=== PATIENT | male | born 1975 | race Caucasian/White ===

== ENCOUNTER 2018-04-23 18:11 | Emergency (ER) | payer OTHER ==
[~2018-04-23] VITALS: Ht 180.3 cm; Wt 84.4 kg
[~2018-04-23 18:11] MED LIST: AUGMENTIN 875875 MG PO; BACTRIM DS TAB1 EACH PO; KEFLEX500 MG PO; MEDROLDOSEPACK PO; NOHOMEMEDICATIONS; NORCO 5-325 TA1 EACH PO; PENICILLIN VK250 MG PO; PREDNISONE 20 M20 MG PO; PREDNISONE50 MG PO; PROMETHAZINE-C120 ML PO; SILVADENE20 GM TP; ULTRAVATE50 GM TP; ZOFRAN ODT4 MG PO
[2018-04-23] MEDS ORDERED: UNICOMPLEX M TA1 TA1 PO (18:20)
[2018-04-23] MEDS ORDERED: FISH OIL 1,001000 M2 PO (18:20)
[2018-04-23] MEDS ORDERED: VITAMIN B122500 MCG PO (18:21)
[2018-04-23 18:44] LABS: ABSOLUTE BASOPHILS 0.1 thou/uL (0.0-0.2); ABSOLUTE EOSINOPHILS 0.2 thou/uL (0.0-0.7); ABSOLUTE LYMPHOCYTES 2.4 thou/uL (0.8-5.3); ABSOLUTE MONOCYTES 0.4 thou/uL (0.0-1.2); ABSOLUTE NEUTROPHILS 3.3 thou/uL (1.6-8.1); BASOPHILS 1.2 %; EOSINOPHILS 3.2 %; HEMOGLOBIN 14.3 gm/dL (14.0-18.0); LYMPHOCYTES 37.6 %; MCH 30.8 pg (26.0-34.0); MCHC 34.9 g/dL (28.0-37.0); MCV 88.4 fL (80.0-100.0); MONOCYTES 6.2 %; MPV 8.4 fl. (7.2-11.1); NUCLEATED RBCS 0 /100WBC; PLATELET COUNT* 240 thou/uL (150-400); POLYS 51.8 %; RBC 4.64 mil/uL (4.50-6.00); RDW-CV 12.6 % (10.5-14.5); WBC 6.4 thou/uL (4.0-11.0)
[2018-04-23 18:50] LABS: ANION GAP 13 mmol/L (7-16); BUN 15 mg/dL (7-18); CALCIUM 8.1 mg/dL (8.5-10.1); CHLORIDE 106 mmol/L (98-107); CO2 23 mmol/L (21-32); GLUCOSE 117 mg/dL (70-99); POTASSIUM 3.3 mmol/L (3.5-5.1); SODIUM 142 mmol/L (136-145)
[2018-04-23 19:00] LABS: ALBUMIN 3.8 g/dL (3.4-5.0); ALKALINE PHOSPHATASE 58 U/L (46-116); LIPASE 132 U/L (73-393); MAGNESIUM 2.4 mg/dL (1.8-2.4); NT-PRO BRAIN NAT PEPTIDE 66 pg/mL (<300); SGOT 20 U/L (15-37); SGPT 26 U/L (30-65); TOTAL BILIRUBIN 0.4 mg/dL (<0.1-1.0); TOTAL PROTEIN 7.2 g/dL (6.4-8.2); TROPONIN-I LEVEL <0.06 ng/mL (<0.06)
[2018-04-23 19:37] VITALS: BP 127/77
--- NOTE | 2018-04-25 18:38 | EKG ---
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
== END 2018-04-23 19:38 | disposition home or self-care (01) ==
LOC: M.ERS 18:11
PROVIDERS: Emergency Medicine Emergency Medical Services
DX: R55 Syncope and collapse (principal); F10.129 Alcohol abuse with intoxication, unspecified; Z88.5 Allergy status to narcotic agent; Y90.6 Blood alcohol level of 120-199 mg/100 ml

== ENCOUNTER 2019-10-17 09:30 | Emergency (ER) | payer OTHER ==
[~2019-10-17] VITALS: Ht 180.3 cm; Wt 81.7 kg
[~2019-10-17 09:30] MED LIST changes: +FISH OIL 1,001000 M2 PO; +FLUOCINOLONE AC15 GM TOP; +UNICOMPLEX M TA1 TA1 PO; +VITAMIN B122500 MCG PO
[2019-10-17] MEDS ORDERED: NAPROSYN500 MG PO (10:22)
[2019-10-17 10:37] VITALS: BP 148/90
== END 2019-10-17 10:38 | disposition home or self-care (01) ==
LOC: M.ERS 09:30
DX: S60.221A Contusion of right hand, initial encounter (principal); S60.031A Contusion of right middle finger without damage to nail, initial encounter; S60.041A Contusion of right ring finger without damage to nail, initial encounter; W22.8XXA Striking against or struck by other objects, initial encounter; Y93.89 Activity, other specified; Y92.89 Other specified places as the place of occurrence of the external cause; Y99.8 Other external cause status

== ENCOUNTER 2020-05-16 18:41 | Emergency (ER) | payer OTHER ==
[~2020-05-16] VITALS: Ht 180.3 cm; Wt 81.7 kg
[~2020-05-16 18:41] MED LIST changes: +NAPROSYN500 MG PO
[2020-05-16 20:25] VITALS: BP 134/98
== END 2020-05-16 20:26 | disposition home or self-care (01) ==
LOC: M.ERS 18:41
DX: U07.1 COVID-19 (principal); Z88.6 Allergy status to analgesic agent

== ENCOUNTER 2020-05-30 11:03 | Emergency (ER) | payer OTHER ==
[~2020-05-30] VITALS: Ht 180.3 cm; Wt 81.7 kg
[2020-05-30] MEDS ORDERED: ZPAK PO (13:55)
[2020-05-30] MEDS ORDERED: ZOFRAN ODT4 MG PO (13:55)
[2020-05-30 13:58] VITALS: BP 125/71
== END 2020-05-30 14:03 | disposition home or self-care (01) ==
LOC: M.ERS 11:03
DX: J98.8 Other specified respiratory disorders (principal); Z20.828 Contact with and (suspected) exposure to other viral communicable diseases; Z88.6 Allergy status to analgesic agent

== ENCOUNTER 2021-06-16 20:10 | Emergency (ER) | payer OTHER ==
[~2021-06-16] VITALS: Ht 180.3 cm; Wt 80.7 kg
[~2021-06-16 20:10] MED LIST changes: +ZPAK PO
[2021-06-16 21:06] LABS: ABSOLUTE LYMPHOCYTES 1.4 thou/uL (0.8-5.3); ABSOLUTE MONOCYTES 0.6 thou/uL (0.0-1.2); BASOPHILS 0.5 %; EOSINOPHILS 0.1 %; HEMATOCRIT 43.4 % (42.0-52.0); HEMOGLOBIN 15.2 gm/dL (14.0-18.0); LYMPHOCYTES 17.2 %; MCH 31.9 pg (26.0-34.0); MONOCYTES 7.8 %; MPV 7.8 fl. (7.2-11.1); NUCLEATED RBCS 0 /100WBC; PLATELET COUNT* 190 thou/uL (150-400); POLYS 74.4 %; RBC 4.76 mil/uL (4.50-6.00); RDW-CV 12.5 % (10.5-14.5)
[2021-06-16 21:15] LABS: CALCIUM 9.3 mg/dL (8.5-10.1); POTASSIUM 3.2 mmol/L (3.5-5.1)
[2021-06-16 21:20] LABS: ALBUMIN 4.5 g/dL (3.4-5.0); TOTAL BILIRUBIN 0.9 mg/dL (<0.1-1.0); TOTAL PROTEIN 8.2 g/dL (6.4-8.2)
[2021-06-16 21:22] LABS: APTT 22.9 Seconds (25.0-31.3); PROTIME 10.2 Seconds (9.20-11.50)
[2021-06-17] MEDS ORDERED: OMEPRAZOLE40 MG PO (00:05)
[2021-06-17] MEDS ORDERED: CARAFATE 1 GM TA1 GM PO (00:05)
[2021-06-17 00:38] VITALS: BP 149/96
--- NOTE | 2021-06-17 10:05 | EKG ---
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1975 Requested By: Yulissa Trejo Order Number: [id number] MD: Charlie Ramsay Measurements Intervals [place] Rate: 106 P: 42 [place]: 143 QRS: 43 QRSD: 106 T: 32 QT: 351 QTc: 467 Interpretive Statements Sinus tachycardia Abnormal R-wave progression, late transition Minimal ST depression, inferior leads Compared to ECG 04/23/2018 18:13:34 Sinus rhythm no longer present Electronically Signed On 06-17-2021 10:05:21 CDT by Charlie Ramsay [email or web address] <ELECTRONICALLY SIGNED> By: Charlie Ramsay MD, FACC 06/17/21 1005 15 15 Charlie Ramsay MD, [facility] /EPI
== END 2021-06-17 00:39 | disposition home or self-care (01) ==
LOC: M.ERS 20:10
PROVIDERS: Personal Emergency Response Attendant
DX: K21.00 Gastro-esophageal reflux disease with esophagitis, without bleeding (principal); Z20.822 Contact with and (suspected) exposure to COVID-19; I10 Essential (primary) hypertension; Z88.5 Allergy status to narcotic agent